=== PATIENT | female | born 1940 | race Two or more races ===

== ENCOUNTER 2020-05-12 13:25 | Emergency (ER) | payer OTHER ==
[~2020-05-12] VITALS: Ht 149.9 cm; Wt 59.9 kg
[2020-05-12] MEDS ORDERED: SYNTHROID50 MCG (14:14)
[2020-05-12] MEDS ORDERED: SINGULAIR 10MG10 MG (14:15)
[2020-05-12] MEDS ORDERED: RAYOS5 MG (14:15)
== END 2020-05-12 18:38 | disposition home or self-care (01) ==
LOC: ER 13:25
DX: N83.291 Other ovarian cyst, right side (principal); K57.30 Diverticulosis of large intestine without perforation or abscess without bleeding; R10.32 Left lower quadrant pain

== ENCOUNTER 2020-05-17 12:54 | Emergency (ER) | payer OTHER ==
[~2020-05-17] VITALS: Ht 149.9 cm; Wt 59.9 kg
[~2020-05-17 12:54] MED LIST: RAYOS5 MG; SINGULAIR 10MG10 MG; SYNTHROID50 MCG
[2020-05-17] MEDS ORDERED: CELLCEPT500 MG (13:02)
[2020-05-17] MEDS ORDERED: ZETIA10 MG (13:03)
== END 2020-05-18 10:50 | disposition home or self-care (01) ==
LOC: ER 12:54
DX: E87.1 Hypo-osmolality and hyponatremia (principal); K29.70 Gastritis, unspecified, without bleeding; R10.12 Left upper quadrant pain; M25.552 Pain in left hip; R21 Rash and other nonspecific skin eruption; J45.998 Other asthma

== ENCOUNTER 2023-08-24 18:08 | Emergency (ER) | payer OTHER ==
[~2023-08-24] VITALS: Ht 147.3 cm; Wt 59.0 kg
[~2023-08-24 18:08] MED LIST changes: +CELLCEPT500 MG; +ZETIA10 MG
[2023-08-24] MEDS ORDERED: 0.9 % SODIUM CHLORIDE 500 ML IV ONE (19:00)
[2023-08-24] MEDS ORDERED: FAMOtidine 10 MG/ML (4ML VIAL) IV ONE (19:00)
[2023-08-24 20:00] LABS: HEMATOCRIT 32.6 % (36.0-45.00); HEMOGLOBIN 10.9 g/dL (12.0-15.00); MEAN CELL VOLUME 95.4 fL (80.00-100.00); MEAN CORPUSCULAR HEMOGLOBIN 31.9 pg (27.00-32.0); MEAN CORPUSCULAR HGB CONC 33.4 g/dl (32.0-36.0); PLATELET COUNT 190 K/uL (150-450); RED BLOOD COUNT 3.42 M/uL (4.00-6.00); RED CELL DISTRIBUTION WIDTH 13.1 % (11.5-14.5)
[2023-08-24 21:03] LABS: ALBUMIN 3.3 gm/dL (3.4-5.0); BILIRUBIN TOTAL 0.21 mg/dL (0.3-1.2); CALCIUM 8.5 mg/dL (8.5-10.1); CREATININE SERUM 1.58 mg/dL (0.55-1.02); GFR 31.23; GLOBULINA 3.4 G/DL (2.4-3.5); POTASSIUM 5.1 mEq/L (3.5-5.1); TOTAL PROTEIN 6.7 gm/dL (6.4-8.2)
== END 2023-08-24 22:10 | disposition home or self-care (01) ==
LOC: ER 18:09
PROVIDERS: General Practice
DX: U07.1 COVID-19 (principal); R19.7 Diarrhea, unspecified; Z88.6 Allergy status to analgesic agent
CPT/HCPCS: 36415; 96365; 99282; J3490; J7042